=== PATIENT | female | born 1985 | race Caucasian/White ===

== ENCOUNTER 2017-08-07 23:47 | Inpatient (IN) | payer OTHER ==
[2017-08-08] MEDS ORDERED: Sodium Chloride 0.9% 10 ML Syringe FLUSH PRN (00:43)
[2017-08-08] MEDS: Lactated Ringers 1,000 ML IV SCH ×2 (00:45→01:25)
[2017-08-08] MEDS ORDERED: Oxytocin/Lactated Ringers 10 UNIT/1,000 ML BAG IV SCH (00:45)
[2017-08-08] MEDS ORDERED: ePHEDrine 50 MG/ML SDV IVPUSH PRN (01:37)
[2017-08-08] MEDS ORDERED: fentaNYL 100 MCG/2 ML SDV EPIDUR PRN (01:37)
[2017-08-08] MEDS ORDERED: diphenhydrAMINE 50 MG/ML SDV IVPUSH PRN (01:37)
[2017-08-08] MEDS ORDERED: Nalbuphine 20 MG/1 ML Amp IVPUSH ONE (01:39)
[2017-08-08] MEDS ORDERED: fentaNYL/Bupivacaine in NS PF 2.5 MCG/ML-0.1% 50 ML Syringe EPIDUR SCH (01:45)
--- NOTE | 2017-08-08 02:04 | PCM.LDHP ---
L&D History of Present Illness - General Date of Service: 08/08/17 Admit Problem/Dx: Patient Status Order with Admit Dx/Problem 08/08/17 00:44 Patient Status [ADT] Routine Admission Diagnosis/Problem Admission Diagnosis/Problem Source of Information: Patient History Limitations: Reports: No Limitations - History of Present Illness Introduction:: Patient is a 32 y/o at 38 4/7 wks who presents with SROM/labor. Contractions started around 2100 yesterday PM. Had SROM around 2300. Otherwise doing well. 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 (Approximate): - Past Surgical History Female Surgical History: Reports: Breast Implant Social & Family History - Tobacco Use Smoking Status *Q: Former Smoker - Alcohol Use Alcohol Use History: No - Recreational Drug Use Recreational Drug Use: No H&P Review of Systems - Review of Systems: Review Of Systems: See Below General: Reports: No Symptoms Pulmonary: Reports: No Symptoms Cardiovascular: Reports: No Symptoms Gastrointestinal: Reports: No Symptoms Genitourinary: Reports: No Symptoms Musculoskeletal: Reports: No Symptoms Neurological: Reports: No Symptoms L&D Exam - Exam Exam: See Below - Vital Signs Vital Signs: Last Vital Signs Temp 36.7 C 08/08/17 00:43 Pulse 83 08/08/17 00:43 Resp 18 08/08/17 00:43 BP 119/83 08/08/17 00:43 Pulse Ox Weight: 72.711 kg - OB Specific Contraction Intensity: Moderate to Strong Movement: Active Heart Tones: Present Heart Tones per Min: 135 Heart Rate (FHR) Variability: Moderate (6-25 bmp) Presentation: Vertex - Denise Score Denise Score Cervix Position: Anterior Denise Score Consistency: Soft Denise Score Effacement: >80% Denise Score Dilation: > 5 cm Denise Score 's Station: -1 ,0 Denise Score Total: 12 - Exam General: Alert, Oriented, Cooperative Lungs: Clear to Auscultation, Normal Respiratory Effort Cardiovascular: Regular Rate, Regular Rhythm GI/Abdominal Exam: Soft, Non-Tender Genitourinary: Normal external exam Extremities: Normal Inspection Skin: Warm, Dry, Intact - Patient Data Lab Results Last 24 hrs: Laboratory Results - last 24 hr 08/08/17 08/08/17 Range/Units 00:53 00:53 WBC 9.74 (3.98-10.04) K/mm3 RBC 3.95 L (3.98-5.22) M/mm3 Hgb 11.7 (11.2-15.7) gm/L Hct 36.4 (34.1-44.9) % MCV 92.2 (79.4-94.8) fl MCH 29.6 (25.6-32.2) pg MCHC 32.1 L (32.2-35.5) g/dl RDW Std Deviation 45.1 (36.4-46.3) fL Plt Count 200 (182-369) K/mm3 MPV 10.6 (9.4-12.3) fl Neut % (Auto) 62.8 (34.0-71.1) % Lymph % (Auto) 23.6 (19.3-51.7) % [place] % (Auto) 12.6 H (4.7-12.5) % Eos % (Auto) 0.5 L (0.7-5.8) Baso % (Auto) 0.2 (0.1-1.2) % Neut # (Auto) 6.11 (1.56-6.13) K/mm3 Lymph # (Auto) 2.30 (1.18-3.74) K/mm3 [place] # (Auto) 1.23 H (0.24-0.36) K/mm3 Eos # (Auto) 0.05 (0.04-0.36) K/mm3 Baso # (Auto) 0.02 (0.01-0.08) K/mm3 Blood Type A POSITIVE Gel Antibody Screen Negative Result Diagrams: 08/08/17 00:53 - Problem List (1) 38 weeks gestation of SNOMED Code(s): 98955204 ICD Code: Z3A.38 - 38 WEEKS GESTATION OF Status: Acute Current Visit: Yes (2) SROM (spontaneous rupture of membranes) SNOMED Code(s): 542391879 ICD Code: [id number] - Status: Acute Current Visit: Yes (3) Refusal of blood transfusions as patient is Yazdanism SNOMED Code(s): 649744378 ICD Code: Z53.1 - PROC/TRTMT NOT CRD OUT BEC PT BELIEF AND GROUP PRESSURE Status: Acute Current Visit: Yes Problem List Initiated/Reviewed/Updated: Yes Orders Last 24hrs: Active Orders 24 hr Category Date Time Status Patient Status [ADT] Routine ADT 08/08/17 00:44 Active Activity as Tolerated [RC] PFP Care 08/08/17 00:43 Active Communication Order [RC] ASDIRECTED Care 08/08/17 00:43 Active Communication Order [RC] ASDIRECTED Care 08/08/17 01:37 Active Cooling Warming Measures [RC] ASDIRECTED Care 08/08/17 01:37 Active Heart Tones [RC] ASDIRECTED Care 08/08/17 00:44 Active Notify Provider [RC] ASDIRECTED Care 08/08/17 01:37 Active Notify Provider [RC] PFP Care 08/08/17 00:43 Active Notify Provider [RC] PRN Care 08/08/17 00:43 Active Oxygen Therapy [RC] ASDIRECTED Care 08/08/17 01:37 Active Peripheral IV Care [RC] . DIRECTED Care 08/08/17 00:44 Active Pulse Oximetry [RC] ASDIRECTED Care 08/08/17 01:37 Active Verify Patient Consent Obtain [RC] ASDIRECTED Care 08/08/17 01:37 Active Vital Signs [RC] PER UNIT ROUTINE Care 08/08/17 00:43 Active Bupivacaine/fentaNYL/NS [fentaNYL/Bupivacaine/NS 2.5 Med 08/08/17 01:45 Active MCG-0.1% 50 ML] 50 ml EPIDUR ASDIRECTED Lactated Ringers [Ringers, Lactated] 1,000 ml Med 08/08/17 00:45 Active IV ASDIRECTED Oxytocin/Lactated Ringers [Pitocin in LR 10 Units/1,000 Med 08/08/17 00:45 Active ML] 10 unit in 1,000 ml IV .CONTINUOUS Sodium Chloride 0.9% [Saline Flush] Med 08/08/17 00:43 Active 10 ml FLUSH ASDIRECTED PRN diphenhydrAMINE [Benadryl] Med 08/08/17 01:37 Active 25 mg IVPUSH Q6H PRN ePHEDrine [ePHEDrine Sulfate] Med 08/08/17 01:37 Active 5 mg IVPUSH ASDIRECTED PRN fentaNYL [Sublimaze] Med 08/08/17 01:37 Active 100 mcg EPIDUR Q3H PRN Electronic Heart Tones Ext w TOCO [WOMSER] Oth 08/08/17 00:43 Ordered Routine Electronic Heart Tones Internal [WOMSER] Per Unit Oth 08/08/17 00:43 Ordered Routine Peripheral IV Insertion Adult [OM.PC] Routine Oth 08/08/17 00:43 Ordered Resuscitation Status Routine Resus Stat 08/08/17 00:43 Ordered Medication Orders Diphenhydramine HCl (Benadryl) 25 mg IVPUSH Q6H PRN PRN Reason: Itching Ephedrine Sulfate (Ephedrine Sulfate) 5 mg IVPUSH ASDIRECTED PRN PRN Reason: HYPOTENTSION Fentanyl (Sublimaze) 100 mcg EPIDUR Q3H PRN PRN Reason: PAIN Last Admin: 08/08/17 01:58 Dose: 100 mcg Fentanyl/Bupivacaine HCl (Fentanyl/Bupivacaine/Ns 2.5 Mcg-0.1% 50 Ml) 50 ml EPIDUR ASDIRECTED [facility] Last Admin: 08/08/17 01:58 Dose: 50 ml Lactated Ringer's (Ringers, Lactated) 1,000 mls @ 100 mls/hr IV ASDIRECTED RAMON Last Admin: 08/08/17 01:25 Dose: 100 mls/hr Infusion: 08/08/17 01:25 Dose: 999 mls/hr Admin: 08/08/17 00:45 Dose: 999 mls/hr Oxytocin/Lactated Ringer's (Pitocin In Lr 10 Units/1,000 Ml) 10 unit in 1,000 mls @ 500 mls/hr IV .CONTINUOUS RAMON Sodium Chloride (Saline Flush) 10 ml FLUSH ASDIRECTED PRN PRN Reason: Keep Vein Open Assessment/Plan Comment:: 32 y/o at 38 4/7 wks who present in labor * CBC and T&S * GBS negative, no need for antibiotics * Pain management per patient preference * Anticipate
[2017-08-08] MEDS ORDERED: Misoprostol 200 MCG Tab ONE (02:23)
--- NOTE | 2017-08-08 02:45 | PCM.PREANE ---
Preanesthetic Assessment - Anesthesia/Transfusion/Family Hx Anesthesia History: Prior Anesthesia Without Reaction Family History of Anesthesia Reaction: No Transfusion History: No Prior Transfusion(s) - Review of Systems General: No Symptoms Pulmonary: No Symptoms Cardiovascular: No Symptoms Gastrointestinal: No Symptoms Neurological: No Symptoms Other: Reports: None - Physical Assessment Pulse: 83 O2 Sat by Pulse Oximetry: 97 Respiratory Rate: 18 Blood Pressure: 119/83 Temperature: 36.7 C Vital Signs: Last Vital Signs Temp 36.7 C 08/08/17 00:43 Pulse 83 08/08/17 00:43 Resp 18 08/08/17 00:43 BP 119/83 08/08/17 00:43 Pulse Ox Height: 1.7 m Weight: 72.711 kg ASA Class: 2 Mental Status: Alert & Oriented x3 Airway Class: Mallampati = 1 Dentition: Reports: Normal Dentition Thyro-Mental Finger Breadths: 3 Mouth Opening Finger Breadths: 3 ROM/Head Extension: Full Lungs: Clear to Auscultation, Normal Respiratory Effort Cardiovascular: Regular Rate, Regular Rhythm - Lab Values: Laboratory Last Values WBC 9.74 K/mm3 (3.98-10.04) 08/08/17 00:53 RBC 3.95 M/mm3 (3.98-5.22) L 08/08/17 00:53 Hgb 11.7 gm/L (11.2-15.7) 08/08/17 00:53 Hct 36.4 % (34.1-44.9) 08/08/17 00:53 MCV 92.2 fl (79.4-94.8) 08/08/17 00:53 MCH 29.6 pg (25.6-32.2) 08/08/17 00:53 MCHC 32.1 g/dl (32.2-35.5) L 08/08/17 00:53 RDW Std Deviation 45.1 fL (36.4-46.3) 08/08/17 00:53 Plt Count 200 K/mm3 (182-369) 08/08/17 00:53 MPV 10.6 fl (9.4-12.3) 08/08/17 00:53 Neut % (Auto) 62.8 % (34.0-71.1) 08/08/17 00:53 Lymph % (Auto) 23.6 % (19.3-51.7) 08/08/17 00:53 [place] % (Auto) 12.6 % (4.7-12.5) H 08/08/17 00:53 Eos % (Auto) 0.5 (0.7-5.8) L 08/08/17 00:53 Baso % (Auto) 0.2 % (0.1-1.2) 08/08/17 00:53 Neut # (Auto) 6.11 K/mm3 (1.56-6.13) 08/08/17 00:53 Lymph # (Auto) 2.30 K/mm3 (1.18-3.74) 08/08/17 00:53 [place] # (Auto) 1.23 K/mm3 (0.24-0.36) H 08/08/17 00:53 Eos # (Auto) 0.05 K/mm3 (0.04-0.36) 08/08/17 00:53 Baso # (Auto) 0.02 K/mm3 (0.01-0.08) 08/08/17 00:53 Blood Type A POSITIVE 08/08/17 00:53 Gel Antibody Screen Negative 08/08/17 00:53 - Allergies Allergies/Adverse Reactions: Allergies Allergy/AdvReac Type Severity Reaction Status Date / Time cashew nut Allergy Tachycardia Verified 08/08/17 00:43 - Anesthesia Plan Pre-Op Medication Ordered: None - Acknowledgements Anesthesia Type Planned: Epidural Pt an Appropriate Candidate for the Planned Anesthesia: Yes Alternatives and Risks of Anesthesia Discussed w Pt/Guardian: Yes Pt/Guardian Understands and Agrees with Anesthesia Plan: Yes PreAnesthesia Questionnaire Cardiovascular History: Reports: Other (See Below) (Hx of preeclampsia wiht first in 2010) Gastrointestinal History: Reports: 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 history of breast augmentation - Past Surgical History Female Surgical History: Reports: Breast Implant - SUBSTANCE USE Smoking Status *Q: Former Smoker Recreational Drug Use History: No - HOME MEDS Home Medications: Home Meds L.acidoph,Paracasei, B.lactis [Probiotic] 1 each PO 08/08/17 [History] [place]-3/DHA/Epa/Fish Oil [[place] 3 500 Softgel] 08/08/17 [History] MYT010/Iron Fumarate/FA/DSS [ 19 Tablet] 08/08/17 [History] - CURRENT (IN HOUSE) MEDS Current Meds: Current Medications Diphenhydramine HCl (Benadryl) 25 mg IVPUSH Q6H PRN PRN Reason: Itching Ephedrine Sulfate (Ephedrine Sulfate) 5 mg IVPUSH ASDIRECTED PRN PRN Reason: HYPOTENTSION Fentanyl (Sublimaze) 100 mcg EPIDUR Q3H PRN PRN Reason: PAIN Last Admin: 08/08/17 01:58 Dose: 100 mcg Fentanyl/Bupivacaine HCl (Fentanyl/Bupivacaine/Ns 2.5 Mcg-0.1% 50 Ml) 50 ml EPIDUR ASDIRECTED RAMON Last Admin: 08/08/17 01:58 Dose: 50 ml Lactated Ringer's (Ringers, Lactated) 1,000 mls @ 100 mls/hr IV ASDIRECTED RAMON Last Admin: 08/08/17 01:25 Dose: 100 mls/hr Oxytocin/Lactated Ringer's (Pitocin In Lr 10 Units/1,000 Ml) 10 unit in 1,000 mls @ 500 mls/hr IV .CONTINUOUS RAMON Sodium Chloride (Saline Flush) 10 ml FLUSH ASDIRECTED PRN PRN Reason: Keep Vein Open Discontinued Medications Nalbuphine HCl (Nubain) 10 mg IVPUSH ONETIME ONE Stop: 08/08/17 01:40 Last Admin: 08/08/17 02:32 Dose: Not Given
--- NOTE | 2017-08-08 03:34 | PCM.DEL ---
L & D Note - General Info Date of Service: 08/08/17 - Delivery Note Labor: Spontaneous Delivery Outcome: Livebirth Delivery Method: Spontaneous Vaginal Delivery-Single Delivery Mode: Spontaneous Presentation: Left Occiput Anterior (ELOY) Nuchal Cord: None Anesthesia Type: Epidural Amniotic Fluid Description: Clear Episiotomy Type: None Laceration: 2nd Degree Suture type: Vicryl Suture size: 2-0 Placenta: Intact, Spontaneous Cord: 3 Vessels Estimated Blood Loss: 350 Resuscitation Needed: Yes : Bulb Syringe, Stimulated, Warmed, Monument Used, Warmer Used Score 1 min: 8 Score 5 min: 9 Delivery Comments (Free Text/Narrative):: Patient found to be complete and began pushing. With maternal pushing effort head delivered from ELOY presentation. No nuchal cord present. With gentle downward traction the shoulders and body delivered. Infant placed on maternal abdomen. Cord clamped and cut. Cord blood obtained. Placenta allowed time to separate and then expelled intact. There was continued moderate flow after this and patient given 600 mcg of buccal cytotec with good resolution. Inspection of the perineum showed a 2nd degree laceration repaired with a 2-0 vicryl in the typical fashion - Patient Data Vitals - Most Recent: Last Vital Signs Temp 36.7 C 08/08/17 02:45 Pulse 83 08/08/17 02:45 Resp 18 08/08/17 02:45 BP 119/83 08/08/17 02:45 Pulse Ox 97 08/08/17 02:45 Weight - Most Recent: 72.711 kg I&O - Last 24 Hours: Intake & Output 08/07/17 08/07/17 08/08/17 14:59 22:59 06:59 Intake Total 1999 Balance 1999 Lab Results Last 24 Hours: Laboratory Results - last 24 hr 08/08/17 08/08/17 Range/Units 00:53 00:53 WBC 9.74 (3.98-10.04) K/mm3 RBC 3.95 L (3.98-5.22) M/mm3 Hgb 11.7 (11.2-15.7) gm/L Hct 36.4 (34.1-44.9) % MCV 92.2 (79.4-94.8) fl MCH 29.6 (25.6-32.2) pg MCHC 32.1 L (32.2-35.5) g/dl RDW Std Deviation 45.1 (36.4-46.3) fL Plt Count 200 (182-369) K/mm3 MPV 10.6 (9.4-12.3) fl Neut % (Auto) 62.8 (34.0-71.1) % Lymph % (Auto) 23.6 (19.3-51.7) % [place] % (Auto) 12.6 H (4.7-12.5) % Eos % (Auto) 0.5 L (0.7-5.8) Baso % (Auto) 0.2 (0.1-1.2) % Neut # (Auto) 6.11 (1.56-6.13) K/mm3 Lymph # (Auto) 2.30 (1.18-3.74) K/mm3 [place] # (Auto) 1.23 H (0.24-0.36) K/mm3 Eos # (Auto) 0.05 (0.04-0.36) K/mm3 Baso # (Auto) 0.02 (0.01-0.08) K/mm3 Blood Type A POSITIVE Gel Antibody Screen Negative Med Orders - Current: Current Medications Diphenhydramine HCl (Benadryl) 25 mg IVPUSH Q6H PRN PRN Reason: Itching Ephedrine Sulfate (Ephedrine Sulfate) 5 mg IVPUSH ASDIRECTED PRN PRN Reason: HYPOTENTSION Fentanyl (Sublimaze) 100 mcg EPIDUR Q3H PRN PRN Reason: PAIN Last Admin: 08/08/17 01:58 Dose: 100 mcg Fentanyl/Bupivacaine HCl (Fentanyl/Bupivacaine/Ns 2.5 Mcg-0.1% 50 Ml) 50 ml EPIDUR ASDIRECTED RAMON Last Admin: 08/08/17 01:58 Dose: 50 ml Lactated Ringer's (Ringers, Lactated) 1,000 mls @ 100 mls/hr IV ASDIRECTED RAMON Last Admin: 08/08/17 01:25 Dose: 100 mls/hr Oxytocin/Lactated Ringer's (Pitocin In Lr 10 Units/1,000 Ml) 10 unit in 1,000 mls @ 500 mls/hr IV .CONTINUOUS RAMON Last Admin: 08/08/17 03:16 Dose: 500 mls/hr Sodium Chloride (Saline Flush) 10 ml FLUSH ASDIRECTED PRN PRN Reason: Keep Vein Open Discontinued Medications Misoprostol (Cytotec) Confirm Administered Dose 600 mcg .ROUTE .STK-MED ONE Stop: 08/08/17 02:24 Nalbuphine HCl (Nubain) 10 mg IVPUSH ONETIME ONE Stop: 08/08/17 01:40 Last Admin: 08/08/17 02:32 Dose: Not Given - Problem List & Annotations (1) 38 weeks gestation of SNOMED Code(s): 33836465 Code(s): Z3A.38 - 38 WEEKS GESTATION OF Status: Acute Current Visit: Yes (2) SROM (spontaneous rupture of membranes) SNOMED Code(s): 301700582 Code(s): NYV7894 - Status: Acute Current Visit: Yes (3) Refusal of blood transfusions as patient is Yazidi SNOMED Code(s): 344790965 Code(s): Z53.1 - PROC/TRTMT NOT CRD OUT BEC PT BELIEF AND GROUP PRESSURE Status: Acute Current Visit: Yes (4) Vaginal delivery SNOMED Code(s): 647317598 Code(s): O80 - ENCOUNTER FOR FULL-TERM UNCOMPLICATED DELIVERY Status: Acute Current Visit: Yes - Problem List Review Problem List Initiated/Reviewed/Updated: Yes - My Orders Last 24 Hours: My Active Orders 08/08/17 00:43 Activity as Tolerated [RC] PFP Communication Order [RC] ASDIRECTED Notify Provider [RC] PFP Notify Provider [RC] PRN Vital Signs [RC] PER UNIT ROUTINE Sodium Chloride 0.9% [Saline Flush] 10 ml FLUSH ASDIRECTED PRN Electronic Heart Tones Ext w TOCO [WOMSER] Routine Electronic Heart Tones Internal [WOMSER] Per Unit Routine Peripheral IV Insertion Adult [OM.PC] Routine Resuscitation Status Routine 08/08/17 00:44 Patient Status [ADT] Routine Heart Tones [RC] ASDIRECTED Peripheral IV Care [RC] . DIRECTED 08/08/17 00:45 Lactated Ringers [Ringers, Lactated] 1,000 ml IV ASDIRECTED Oxytocin/Lactated Ringers [Pitocin in LR 10 Units/1,000 ML] 10 unit in 1,000 ml IV .CONTINUOUS - Assessment Assessment:: 32 y/o G2 now P2002 PPD#0 from at 38 4/7 wks - Plan Plan:: * Routine cares * Encourage breast feeding * Discharge home in 1-2 days
[2017-08-08] MEDS ORDERED: Witch Hazel Medicated Pads 100/Jar TOP PRN (03:46)
[2017-08-08] MEDS ORDERED: Docusate Sodium 100 MG Cap PO PRN (03:46)
[2017-08-08] MEDS ORDERED: Benzocaine/Menthol 20%-0.5% Spray 56 GM Canister TOP PRN (03:46)
[2017-08-08] MEDS ORDERED: Lanolin 100% Cream 7 GM Tube TOP PRN (03:46)
[2017-08-08] MEDS ORDERED: Acetaminophen 325 MG Tab PO PRN (03:46)
[2017-08-08] MEDS ORDERED: Misoprostol 200 MCG Tab PO STA (03:46)
[2017-08-08] MEDS: Ibuprofen 600 MG Tab PO PRN ×2 (14:27→20:34)
[2017-08-08] MEDS ORDERED: Bupivacaine 0.25% 10 ML SDV ONE (17:00)
[2017-08-09] MEDS: Ibuprofen 600 MG Tab PO PRN (03:14)
--- NOTE | 2017-08-09 05:54 | PCM.PNPP ---
- General Info Date of Service: 08/09/17 Functional Status: Reports: Pain Controlled, Tolerating Diet, Ambulating, Urinating - Review of Systems General: Reports: No Symptoms Pulmonary: Reports: No Symptoms Cardiovascular: Reports: No Symptoms Gastrointestinal: Reports: No Symptoms Genitourinary: Reports: No Symptoms Musculoskeletal: Reports: No Symptoms - Patient Data Vital Signs - Most Recent: Last Vital Signs Temp 36.8 C 08/09/17 03:11 Pulse 70 08/09/17 03:11 Resp 17 08/09/17 03:11 BP 104/62 08/09/17 03:11 Pulse Ox 98 08/09/17 03:11 Weight - Most Recent: 72.711 kg Med Orders - Current: Current Medications Acetaminophen (Tylenol) 650 mg PO Q4H PRN PRN Reason: mild pain or fever Benzocaine/Menthol (Dermoplast Pain Relief [place]) 0 gm TOP ASDIRECTED PRN PRN Reason: Perineal Comfort Measure Last Admin: 08/08/17 07:35 Dose: 1 applic Docusate Sodium (Colace) 100 mg PO BID PRN PRN Reason: Constipation Last Admin: 08/08/17 14:32 Dose: 100 mg Emollient Ointment (Lansinoh Hpa) 0 gm TOP ASDIRECTED PRN PRN Reason: Sore Nipples Ibuprofen (Motrin) 600 mg PO Q6H PRN PRN Reason: Mild pain or fever Last Admin: 08/09/17 03:14 Dose: 600 mg Witch Aisha (Tucks) 1 pad TOP ASDIRECTED PRN PRN Reason: Hemorrhoid pain Last Admin: 08/08/17 07:35 Dose: 1 applic Discontinued Medications Diphenhydramine HCl (Benadryl) 25 mg IVPUSH Q6H PRN PRN Reason: Itching Ephedrine Sulfate (Ephedrine Sulfate) 5 mg IVPUSH ASDIRECTED PRN PRN Reason: HYPOTENTSION Fentanyl (Sublimaze) 100 mcg EPIDUR Q3H PRN PRN Reason: PAIN Last Admin: 08/08/17 01:58 Dose: 100 mcg Fentanyl/Bupivacaine HCl (Fentanyl/Bupivacaine/Ns 2.5 Mcg-0.1% 50 Ml) 50 ml EPIDUR ASDIRECTED RAMON Last Admin: 08/08/17 01:58 Dose: 50 ml Lactated Ringer's (Ringers, Lactated) 1,000 mls @ 100 mls/hr IV ASDIRECTED RAMON Last Admin: 08/08/17 01:25 Dose: 100 mls/hr Oxytocin/Lactated Ringer's (Pitocin In Lr 10 Units/1,000 Ml) 10 unit in 1,000 mls @ 500 mls/hr IV .CONTINUOUS RAMON Last Admin: 08/08/17 03:16 Dose: 500 mls/hr Misoprostol (Cytotec) Confirm Administered Dose 600 mcg .ROUTE .STK-MED ONE Stop: 08/08/17 02:24 Misoprostol (Cytotec) 600 mcg PO NOW STA Stop: 08/08/17 03:47 Last Admin: 08/08/17 03:20 Dose: 600 mcg Nalbuphine HCl (Nubain) 10 mg IVPUSH ONETIME ONE Stop: 08/08/17 01:40 Last Admin: 08/08/17 02:32 Dose: Not Given Sodium Chloride (Saline Flush) 10 ml FLUSH ASDIRECTED PRN PRN Reason: Keep Vein Open - Infant Interaction Infant Disposition, : [place] in Room with Family Interaction: Holding Infant Feeding: Breastfed Infant; Nursed Well Support Person: - Recovery Exam Fundal Tone: Firm Fundal Level: At Umbilicus Fundal Placement: Midline Lochia Amount: Small Lochia Color: Rubra/Red Perineum Description: Other (see below) Other Perinuem Description: second degree lac with repair Episiotomy/Laceration: Approximated Bladder Status: Voiding Urinary Elimination: Voided - Exam General: Alert, Oriented, Cooperative GI/Abdominal Exam: Soft, Non-Tender Extremities: Normal Inspection Skin: Warm, Dry, Intact - Problem List & Annotations (1) 38 weeks gestation of SNOMED Code(s): 32674900 Code(s): Z3A.38 - 38 WEEKS GESTATION OF Status: Acute (2) SROM (spontaneous rupture of membranes) SNOMED Code(s): 674862301 Code(s): JII1106 - Status: Acute (3) Refusal of blood transfusions as patient is Baptism SNOMED Code(s): 765793653 Code(s): Z53.1 - PROC/TRTMT NOT CRD OUT BEC PT BELIEF AND GROUP PRESSURE Status: Acute (4) Vaginal delivery SNOMED Code(s): 862633887 Code(s): O80 - ENCOUNTER FOR FULL-TERM UNCOMPLICATED DELIVERY Status: Acute - Problem List Review Problem List Initiated/Reviewed/Updated: Yes - My Orders Last 24 Hours: My Active Orders 08/08/17 Breakfast Regular Diet [DIET] 08/09/17 03:46 Heat Therapy [OM.PC] PRN - Assessment Assessment:: 32 y/o G2 now P2002 PPD#1 from at 38 4/7 wks - Plan Plan:: * Routine cares * Encourage breast feeding * Discharge home today
--- NOTE | 2017-08-09 05:55 | PCM.DCSUM1 ---
Discharge Summary - Discharge Data Discharge Date: 08/09/17 Discharge Disposition: Home, Self-Care 01 Condition: Good - Discharge Diagnosis/Problem(s) (1) 38 weeks gestation of SNOMED Code(s): 30254595 ICD Code: Z3A.38 - 38 WEEKS GESTATION OF Status: Acute (2) SROM (spontaneous rupture of membranes) SNOMED Code(s): 894165058 ICD Code: [id number] - Status: Acute (3) Refusal of blood transfusions as patient is Taoism SNOMED Code(s): 357967620 ICD Code: Z53.1 - PROC/TRTMT NOT CRD OUT BEC PT BELIEF AND GROUP PRESSURE Status: Acute (4) Vaginal delivery SNOMED Code(s): 591371266 ICD Code: O80 - ENCOUNTER FOR FULL-TERM UNCOMPLICATED DELIVERY Status: Acute - Patient Summary/Data Complications: None Consults: None Recommended Follow-up Testing/Procedures: Follow up in 3-6 weeks for check Hospital Course: 32 y/o woman presented at 38 4/7 wks gestation in labor. She progressed well to complete dilation and underwent an uncomplicated vaginal delivery. See delivery note for full details. Post she did well and was discharged home on PPD#1 - Patient Instructions Diet: Regular Diet as Tolerated Activity: As Tolerated Activity, Other: Pelvic Rest for 6 weeks Driving: May Drive Today Showering/Bathing: May Shower Showering/Bathing, Other: May Bathe Notify Provider of: Fever, Increased Pain, Swelling and Redness, Drainage, Nausea and/or Vomiting - Discharge Plan Home Medications: Home Meds Docusate Sodium [Colace] 100 mg PO BID PRN cap 08/08/17 [Rx] Ibuprofen [IJD: Ibuprofen] 600 mg PO Q6H PRN tablet 08/08/17 [Rx] LCF843/Iron Fumarate/FA/DSS [ 19 Tablet] 08/08/17 [History] Patient Handouts: Home Care Instructions for Mom, Challenges and Solutions Referrals: Yasmine Guillen MD [Primary Care Provider] - (3-6 weeks for check ) - Discharge Summary/Plan Comment DC Time >30 min.: No - Patient Data Vitals - Most Recent: Last Vital Signs Temp 36.8 C 08/09/17 03:11 Pulse 70 08/09/17 03:11 Resp 17 08/09/17 03:11 BP 104/62 08/09/17 03:11 Pulse Ox 98 08/09/17 03:11 Weight - Most Recent: 72.711 kg Med Orders - Current: Current Medications Acetaminophen (Tylenol) 650 mg PO Q4H PRN PRN Reason: mild pain or fever Benzocaine/Menthol (Dermoplast Pain Relief [place]) 0 gm TOP ASDIRECTED PRN PRN Reason: Perineal Comfort Measure Last Admin: 08/08/17 07:35 Dose: 1 applic Docusate Sodium (Colace) 100 mg PO BID PRN PRN Reason: Constipation Last Admin: 08/08/17 14:32 Dose: 100 mg Emollient Ointment (Lansinoh Hpa) 0 gm TOP ASDIRECTED PRN PRN Reason: Sore Nipples Ibuprofen (Motrin) 600 mg PO Q6H PRN PRN Reason: Mild pain or fever Last Admin: 08/09/17 03:14 Dose: 600 mg Witch Aisha (Tucks) 1 pad TOP ASDIRECTED PRN PRN Reason: Hemorrhoid pain Last Admin: 08/08/17 07:35 Dose: 1 applic Discontinued Medications Diphenhydramine HCl (Benadryl) 25 mg IVPUSH Q6H PRN PRN Reason: Itching Ephedrine Sulfate (Ephedrine Sulfate) 5 mg IVPUSH ASDIRECTED PRN PRN Reason: HYPOTENTSION Fentanyl (Sublimaze) 100 mcg EPIDUR Q3H PRN PRN Reason: PAIN Last Admin: 08/08/17 01:58 Dose: 100 mcg Fentanyl/Bupivacaine HCl (Fentanyl/Bupivacaine/Ns 2.5 Mcg-0.1% 50 Ml) 50 ml EPIDUR ASDIRECTED RAMON Last Admin: 08/08/17 01:58 Dose: 50 ml Lactated Ringer's (Ringers, Lactated) 1,000 mls @ 100 mls/hr IV ASDIRECTED RAMON Last Admin: 08/08/17 01:25 Dose: 100 mls/hr Oxytocin/Lactated Ringer's (Pitocin In Lr 10 Units/1,000 Ml) 10 unit in 1,000 mls @ 500 mls/hr IV .CONTINUOUS RAMON Last Admin: 08/08/17 03:16 Dose: 500 mls/hr Misoprostol (Cytotec) Confirm Administered Dose 600 mcg .ROUTE .STK-MED ONE Stop: 08/08/17 02:24 Misoprostol (Cytotec) 600 mcg PO NOW STA Stop: 08/08/17 03:47 Last Admin: 08/08/17 03:20 Dose: 600 mcg Nalbuphine HCl (Nubain) 10 mg IVPUSH ONETIME ONE Stop: 08/08/17 01:40 Last Admin: 08/08/17 02:32 Dose: Not Given Sodium Chloride (Saline Flush) 10 ml FLUSH ASDIRECTED PRN PRN Reason: Keep Vein Open
--- NOTE | 2017-08-09 08:00 | PCM48HPAN ---
Post Anesthesia Note - EVALUATION WITHIN 48HRS OF ANESTHETIC Vital Signs in Normal Range: Yes Patient Participated in Evaluation: Yes Respiratory Function Stable: Yes Airway Patent: Yes Cardiovascular Function Stable: Yes Hydration Status Stable: Yes Pain Control Satisfactory: Yes Nausea and Vomiting Control Satisfactory: Yes Mental Status Recovered: Yes - COMMENTS/OBSERVATIONS Free Text/Narrative:: no anesthesia complications
== END 2017-08-09 09:10 | disposition home or self-care (01) | DRG 775 ==
LOC: JD.OBCHECK 23:47 → JD.OB 23:51 → JD.OBCHECK 08-08 00:44 → OBSVTOIN 08-08 03:16 → JD.OB 08-08 03:17
PROVIDERS: ADMIT Obstetrics & Gynecology; ATTEND Obstetrics & Gynecology
PROC: 10E0XZZ Delivery of Products of Conception, External Approach (ICD-10-PCS; principal; 2017-08-08)
PROC: 6A550ZT Pheresis of Cord Blood Stem Cells, Single (ICD-10-PCS; 2017-08-08)
PROC: 00HU33Z Insertion of Infusion Device into Spinal Canal, Percutaneous Approach (ICD-10-PCS; 2017-08-08)
PROC: 3E0R3BZ Introduction of Anesthetic Agent into Spinal Canal, Percutaneous Approach (ICD-10-PCS; 2017-08-08)
DX: O70.1 Second degree perineal laceration during delivery (principal); Z3A.38 38 weeks gestation of pregnancy; Z37.0 Single live birth; Z91.018 Allergy to other foods; Z87.891 Personal history of nicotine dependence
CPT/HCPCS: 36415; 59025; 59300; 59409; 85025; 86850; 86900; 86901; A9270-GY; J2590; J3010; J7120